=== PATIENT | male | born 1995 | race Caucasian/White ===

== ENCOUNTER 2017-10-03 10:50 | Emergency (ER) | payer BC ==
--- NOTE | 2017-10-03 13:22 | ED PDOC ---
HPI: Psych/Substance Abuse Time Seen by Provider: 10/03/17 11:11 Chief Complaint (Nursing): Psychiatric Evaluation History Per: Patient Additional Complaint(s): Pt. states he was urged by his family to come to ED for psych evaluation. Pt. does not understand why he is in the hospital. He states all "I have to do is agree and be humble." Denies SI, HI, hallucinations. Offers no complaints at this time. Past Medical History Reviewed: Historical Data, Nursing Documentation, Vital Signs Vital Signs: Last Vital Signs Temp 97 F L 10/03/17 11:03 Pulse 98 H 10/03/17 11:03 Resp 18 10/03/17 11:03 BP 140/82 10/03/17 11:03 Pulse Ox 98 10/03/17 11:03 - Medical History Other PMH: bipolar - Family History Family History: States: No Known Family Hx - Allergies Allergies/Adverse Reactions: Allergies Allergy/AdvReac Type Severity Reaction Status Date / Time No Known Allergies Allergy Verified 10/03/17 11:03 Review of Systems ROS Statement: Except As Marked, All Systems Reviewed And Found Negative Physical Exam - Reviewed Nursing Documentation Reviewed: Yes Vital Signs Reviewed: Yes - Physical Exam Appears: Positive for: Well, Non-toxic, No Acute Distress Head Exam: Positive for: ATRAUMATIC, NORMAL INSPECTION, NORMOCEPHALIC Skin: Positive for: Normal Color, Warm. Negative for: Rash Eye Exam: Positive for: EOMI, Normal appearance, PERRL ENT: Positive for: Normal ENT Inspection Neck: Positive for: Normal, Painless ROM Cardiovascular/Chest: Positive for: Regular Rate, Rhythm Respiratory: Positive for: CNT, Normal Breath Sounds Gastrointestinal/Abdominal: Positive for: Normal Exam, Bowel Sounds, Soft Back: Positive for: Normal Inspection Extremity: Positive for: Normal ROM Neurologic/Psych: Positive for: Alert, Oriented, Mood/Affect (cooperative, hyperverbal, tangential thoughts). Negative for: Aphasia, Facial Droop - Laboratory Results Result Diagrams: 10/03/17 13:42 10/03/17 13:42 - ECG ECG: Positive for: Interpreted By Me ECG Rhythm: Positive for: Sinus Rhythm. Negative for: ST/T Changes Rate: 77 O2 Sat by Pulse Oximetry: 98 - Radiology X-Ray: Interpreted by Me (CXR) X-Ray Interpretation: No Acute Disease - Progress ED Course And Treament: Crisis evaluated pt. and pt. requires [facility] screen. Ativan 2mg IM given as pt. is screaming but is not violent. Pt. is medically cleared for psychiatric evaluation. Disposition - Clinical Impression Clinical Impression: Bipolar 1 disorder - Patient ED Disposition Is Patient to be Admitted: Transfer of Care (Signed out to Brenda MORENO pending [facility] disposition.) - Disposition Disposition Time: 20:05 Condition: STABLE Forms: [employer] (Bulgarian)
[2017-10-03 13:49] LABS: BASO % 0.6 % (0.0-2.0); EOS % 0.1 % (0.0-4.0); HEMATOCRIT 49.4 % (35.0-51.0); LYMPH # 2.3 K/uL (1.0-4.3); MEAN CELL VOLUME 90.2 fl (80.0-94.0); MEAN CORPUSCULAR HEMOGLOBIN 29.6 pg (27.0-31.0); MEAN CORPUSCULAR HGB CONC 32.8 g/dL (33.0-37.0); MEAN PLATELET VOLUME 8.3 fl (7.2-11.7); MONO # 0.8 K/uL (0.0-0.8); MONO % 9.3 % (0.0-10.0); NEUT # 5.2 K/uL (1.8-7.0); NRBC % 0.2 % (0.0-0.0); RED CELL DISTRIBUTION WIDTH 13.5 % (11.5-14.5); WHITE BLOOD COUNT 8.3 K/uL (4.8-10.8)
[2017-10-03 13:52] LABS: RBC URINE < 1 /hpf (0-3); URINE BACTERIA RARE (<OCC); URINE BILIRUBIN NEGATIVE (NEGATIVE); URINE BLOOD NEGATIVE (NEGATIVE); URINE COLOR YELLOW (YELLOW); URINE GLUCOSE (UA) NEG (Normal); URINE KETONE NEGATIVE (NEGATIVE); URINE LEUKOCYTE ESTERASE NEG Leu/uL (Negative); URINE PROTEIN NEGATIVE (NEGATIVE); WBC URINE 1 /hpf (0-5)
--- NOTE | 2017-10-03 13:56 | RAD ---
HISTORY: clearance COMPARISON: No prior. FINDINGS: LUNGS: No active pulmonary disease. PLEURA: No significant pleural effusion identified, no pneumothorax apparent. CARDIOVASCULAR: Normal. OSSEOUS STRUCTURES: Note made of mild the levoscoliosis centered in the lower thoracic region. The Kyphotic VISUALIZED UPPER ABDOMEN: Normal. OTHER FINDINGS: None. IMPRESSION: No active disease.
[2017-10-03 13:59] LABS: ALB/GLOB RATIO 1.5 (1.0-2.1); ALCOHOL SERUM < 10 mg/dl (0-10); ALKALINE PHOSPHATASE 85 U/L (38-126); ALT/SGPT 43 U/L (21-72); AST/SGOT 31 U/L (17-59); BLOOD UREA NITROGEN 15 mg/dl (9-20); CALCIUM 9.6 mg/dL (8.4-10.2); CARBON DIOXIDE 28 mmol/L (22-30); CHLORIDE 101 mmol/L (98-107); GFR AFRICAN-AMERICAN > 60; GLUCOSE,RANDOM 113 mg/dL (75-110); POTASSIUM 4.7 MMOL/L (3.6-5.0); SODIUM 138 mmol/l (132-148); TOTAL PROTEIN 8.2 G/DL (6.3-8.2)
--- NOTE | 2017-10-04 04:30 | ED PDOC ---
- Laboratory Results Result Diagrams: 10/03/17 13:42 10/03/17 13:42 - ECG O2 Sat by Pulse Oximetry: 98 - Progress ED Course And Treament: pt signed out to continuity writer pending [facility] bed stable at this time. Medical Decision Making Medical Decision Making: pending [facility] bed assignment. Disposition - Clinical Impression Clinical Impression: Bipolar 1 disorder - POA Present On Arrival: None - Disposition Disposition: Routine/Home Disposition Time: 06:00 Condition: STABLE Forms: [employer] (Portuguese) Patient Signed Over To: Juan Ribeiro Y Progress Note - Review of Symptoms General: No: Chills, Night Sweats, Fatigue, Malaise, Appetite, Other HEENT: No: Head Aches, Visual Changes, Eye Pain, Ear Pain, Dysphasia, Sinus Congestion, Post Nasal Drip, Sore Throat, Other Pulmonary: No: Dyspnea, Cough, Pleuritic Chest Pain, Other Cardiovascular: No: Chest Pain, Palpitations, Orthopnea, Paroxysmal Noc. Dyspnea , Edema, Light Headedness, Other Gastrointestinal: No: Nausea, Vomiting, Abdominal Pain, Diarrhea, Constipation, Melena, Hematochezia, Other Genitourinary: No: Dysuria, Frequency, Incontinence, Hematuria, Retention, Other Musculoskeletal: No: Muscle Pain, Joint Pain, Other Neurological: No: Weakness, Numbness, Incoordination, Change in speech, Confusion, Seizures, Other
--- NOTE | 2017-10-04 05:53 | CARD ---
APPROVED REPORT EKG Measurement Heart [id number] <Conclusion> Normal sinus rhythm Normal ECG
--- NOTE | 2017-10-04 06:12 | ED PDOC ---
- Laboratory Results Result Diagrams: 10/03/17 13:42 10/03/17 13:42 - ECG O2 Sat by Pulse Oximetry: 98 Medical Decision Making Medical Decision Makin:00 Patient signed out to be by Lachelle Gutierrez pending [facility] screening. Reassess --07:00 Patient to be signed out to Dr. Fagan pending [facility] screening. Scribe Attestation: Documented by Hi Morrow acting as a scribe for Juan Ribeiro MD. Provider Attestation: All medical record entries made by the Scribe were at my direction and personally dictated by me. I have reviewed the chart and agree that the record accurately reflects my personal performance of the history, physical exam, medical decision making, and the department course for this patient. I have also personally directed, reviewed, and agree with the discharge instructions and disposition. Disposition Discussed With : Hoang Fagan Doctor Will See Patient In The: ED - Clinical Impression Clinical Impression: Bipolar 1 disorder - POA Present On Arrival: None - Disposition Disposition: Transfer of Care Disposition Time: 07:00 Condition: STABLE Forms: [employer] (Estonian) Patient Signed Over To: Hoang Fagan
--- NOTE | 2017-10-04 07:49 | ED PDOC ---
- Laboratory Results Result Diagrams: 10/03/17 13:42 10/03/17 13:42 - ECG O2 Sat by Pulse Oximetry: 98 Medical Decision Making Medical Decision Making: Patient was signed out to me by Dr. Ribeiro at 7:00AM, pending [facility] screening. Time: 17:00 Patient is endorsed to Dr. Min To III, pending [facility] bed assignment Scribe Attestation: Documented by Kushal Escobedo, acting as a scribe for Hoang Fagan MD Provider Scribe Attestation: All medical record entries made by the Scribe were at my direction and personally dictated by me. I have reviewed the chart and agree that the record accurately reflects my personal performance of the history, physical exam, medical decision making, and the department course for this patient. I have also personally directed, reviewed, and agree with the discharge instructions and disposition. Disposition - Clinical Impression Clinical Impression: Bipolar 1 disorder - POA Present On Arrival: None - Disposition Disposition: Transfer of Care Disposition Time: 17:00 Condition: STABLE Forms: [employer] (Turkish) Patient Signed Over To: Min To III (pending [facility] bed assignment)
--- NOTE | 2017-10-04 11:27 | CP.PCM.CON ---
History of Present Illness - History of Present Illness History of Present Illness: Psychiatry consult note CC: "They are keeping me here for telling the truth." HPI: 22 yo male presented w/ bizarre behavior, disorganized/tangential speech, scientology preoccupation and delusions, screened by [facility] and accepted for involuntary admission. Patient was a limited historian due to acute psychosis and thought disorganization. Additional info from crisis evaluation below: 22 year old, , Single Male, whom was brought to the [facility] ED by his parents, secondary to pt presenting with "bizarre" behavior and tangential speech. While CW met with pt to conduct assessment, pt was exhibiting disorganized thinking and speech. Pt was dressed in a hospital gown. Pt was unable to answer assessment questions logically, whereas pt displayed "tangetiality" and pressure of speech while talking to CW, loose associations of ideas, exhibit "bizarre delusion" as pt stated that the pens were talking to him, and they were stating that he cannot stay in the hospital."During the assessment, CW observed that pt began to yell, requesting to give him back clothes as he stated, " I am naked and why sinners are not paying for their mistakes." Pt was religiously preocuppied stating that " he is not God, but he is here to save us as we are all sinners." Pt was unable to articulate whether he had any current SI, HI, and A/V/T hallucinations. It is this CW's observation throughout the assessment that pt could not contract for safety." Pt was in severe acute distress at the time of the assessment. Pt is to be screened by [facility] staff. workers compensation claims specialist (DM) met with pt's mother, Cristina [phone] to obtain collateral information. Mrs. Campos reported to CW that pt has been acting "bizarre" since 09/30/2017, whereas pt is pacing back and forth, talking to himself while looking at the mirror, exhibiting tangentiality, and also being religiously preoccupied as pt is making "scientology statement" in regards to " God protecting the world and how sin will make the world pay." Pt's mother while meeting with the CW showed CW the cell phone messages pt sent to his sister stating that he wants a " white loyal dog and white horse" for Inocencia , and he is not God to help the world;all I want is attention and love." Pt's mother stated that pt's appetite and sleep worsen as pt is eating less and has not been sleeping for more than 24 hours. Pt's mother stated that she is seeking at this time Inpatient Admission for pt. PPHx: As per pt's mother, pt is taking Vyvanse 30mg currently as his psychiatris Dr. Lanza recently made some changes with pt's medication. Pt's mother stated that in the past; pt was prescribed Seroquel 300mg and Klonopin 1mg as pt was diagnosed with Bipolar Disorder. As per pt's parent, pt has two prior psychiatric admissions back on 2014 when he lived in [place] while attending school. SHx: Lives in apt w/mother. Utox + Amphetamine ALL: NKDA MSE: Alert and oriented, calm, no acute distress, good eye contact, mood/affect - neutral, thought process- non-linear, circumstantial, loose, thought content- +scientology preoccupation + delusions, Denies AH/VH/SI/HI Impression: 22 yo male w/ schizoaffective disorder vs bipolar disorder presents acutely decompensated in need of acute inpatient hospitalization. -Transfer to [facility] for involuntary commitment when bed is available -Haldol 5 mg PO or IM Q8 PRN agitation/ Ativan 2 mg PO or IM Q8 PRN agitation/ Benadryl 50 mg PO or IM Q8hr PRN agitation Past Patient History - Past Social History Smoking Status: Unknown If Ever Smoked - CARDIAC Hx Cardiac Disorders: No Hx Hypertension: No - PULMONARY Hx Tuberculosis: No - NEUROLOGICAL HX Cerebrovascular Accident: No Hx Seizures: No - HEMATOLOGICAL/ONCOLOGICAL Hx Cancer: No Hx Human Immunodeficiency Virus (HIV): No - GENITOURINARY/GYNECOLOGICAL Hx Sexually Transmitted Disorders: No - PSYCHIATRIC Hx Substance Use: No Meds Allergies/Adverse Reactions: Allergies Allergy/AdvReac Type Severity Reaction Status Date / Time No Known Allergies Allergy Verified 10/03/17 11:03 Results - Vital Signs Recent Vital Signs: Last Vital Signs Temp 98 F 10/04/17 06:18 Pulse 62 10/04/17 06:18 Resp 14 10/04/17 06:18 BP 112/60 10/04/17 06:18 Pulse Ox 98 10/04/17 07:49 - Labs Result Diagrams: 10/03/17 13:42 10/03/17 13:42 Labs: Laboratory Results - last 24 hr 10/03/17 10/03/17 10/03/17 13:35 13:35 13:41 WBC RBC Hgb Hct MCV MCH MCHC RDW Plt Count MPV Neut % (Auto) Lymph % (Auto) Stewart % (Auto) Eos % (Auto) Baso % (Auto) Neut # Lymph # Stewart # Eos # Baso # Sodium Potassium Chloride Carbon Dioxide Anion Gap BUN Creatinine Est GFR ( Amer) Est GFR (Non-Af Amer) POC Glucose (mg/dL) 104 Random Glucose Calcium Total Bilirubin AST ALT Alkaline Phosphatase Total Protein Albumin Globulin Albumin/Globulin Ratio Urine Color Yellow Urine Clarity Slighty-cloudy Urine pH 6.0 Ur Specific [place] 1.021 Urine Protein Negative Urine Glucose (UA) Neg Urine Ketones Negative Urine Blood Negative Urine Nitrate Negative Urine Bilirubin Negative Urine Urobilinogen 2.0 Ur Leukocyte Esterase Neg Urine RBC (Auto) < 1 Urine Microscopic WBC 1 Urine Bacteria Rare Urine Opiates Screen Negative Urine Methadone Screen Negative Ur Barbiturates Screen Negative Ur Phencyclidine Scrn Negative Ur Amphetamines Screen Positive H U Benzodiazepines Scrn Negative U Oth Cocaine Metabols Negative U Cannabinoids Screen Negative Alcohol, Quantitative 10/03/17 10/03/17 13:42 13:42 WBC 8.3 RBC 5.48 Hgb 16.2 Hct 49.4 MCV 90.2 MCH 29.6 MCHC 32.8 L RDW 13.5 Plt Count 263 MPV 8.3 Neut % (Auto) 62.0 Lymph % (Auto) 28.0 Stewart % (Auto) 9.3 Eos % (Auto) 0.1 Baso % (Auto) 0.6 Neut # 5.2 Lymph # 2.3 Stewart # 0.8 Eos # 0.0 Baso # 0.0 Sodium 138 Potassium 4.7 Chloride 101 Carbon Dioxide 28 Anion Gap 14 BUN 15 Creatinine 0.9 Est GFR ( Amer) > 60 Est GFR (Non-Af Amer) > 60 POC Glucose (mg/dL) Random Glucose 113 H Calcium 9.6 Total Bilirubin 1.0 AST 31 ALT 43 Alkaline Phosphatase 85 Total Protein 8.2 Albumin 4.9 Globulin 3.3 Albumin/Globulin Ratio 1.5 Urine Color Urine Clarity Urine pH Ur Specific [place] Urine Protein Urine Glucose (UA) Urine Ketones Urine Blood Urine Nitrate Urine Bilirubin Urine Urobilinogen Ur Leukocyte Esterase Urine RBC (Auto) Urine Microscopic WBC Urine Bacteria Urine Opiates Screen Urine Methadone Screen Ur Barbiturates Screen Ur Phencyclidine Scrn Ur Amphetamines Screen U Benzodiazepines Scrn U Oth Cocaine Metabols U Cannabinoids Screen Alcohol, Quantitative < 10
--- NOTE | 2017-10-04 17:15 | ED PDOC ---
- Laboratory Results Result Diagrams: 10/03/17 13:42 10/03/17 13:42 - ECG O2 Sat by Pulse Oximetry: 98 Medical Decision Making Medical Decision Making: Received on endorsement 5pm pending [facility] bed availability Was prior medically cleared Psychiatry saw patient today 940p patient pacing, agitated with paranoid nonsensical speech. Haldol 5mg IM ordered for relief of agitation and improved lucidity. Disposition - Clinical Impression Clinical Impression: Bipolar 1 disorder - Disposition Condition: FAIR Forms: [employer] (Japanese)
--- NOTE | 2017-10-04 21:40 | ED PDOC ---
- Laboratory Results Result Diagrams: 10/03/17 13:42 10/03/17 13:42 - ECG O2 Sat by Pulse Oximetry: 98 - Progress ED Course And Treament: pt is pending bed assignment with [facility]. Vital Signs - 24 hr 10/04/17 10/04/17 10/04/17 04:30 06:18 07:16 Temperature 98 F Pulse Rate 62 Respiratory 14 Rate Blood Pressure 112/60 O2 Sat by Pulse 98 98 98 Oximetry 10/04/17 10/04/17 10/04/17 09:00 16:59 17:00 Temperature 98.0 F 98.2 F Pulse Rate 87 79 Respiratory 18 18 Rate Blood Pressure 120/67 117/55 L O2 Sat by Pulse 97 98 99 Oximetry 10/04/17 17:15 Temperature Pulse Rate Respiratory Rate Blood Pressure O2 Sat by Pulse 98 Oximetry Medical Decision Making Medical Decision Making: pt pending [facility] Disposition - Clinical Impression Clinical Impression: Bipolar 1 disorder - POA Present On Arrival: None - Disposition Disposition: Transfer of Care Disposition Time: 12:15 Condition: STABLE Forms: [facility] (Omani) Progress Note - Review of Symptoms Events since last encounter: pt is aggressive toward staff verbally and not willing to stay in room. attempts made to verbally re-direct but met with resistance will need Ativan IM 2mg to alleviate psychosis.
[2017-10-05 00:23] VITALS: O2SAT 98
--- NOTE | 2017-10-05 00:29 | ED PDOC ---
- Laboratory Results Result Diagrams: 10/03/17 13:42 10/03/17 13:42 - ECG O2 Sat by Pulse Oximetry: 98 Medical Decision Making Medical Decision Making: Time: 00:00 --Patient signed over to me by Dr. Min To pending [facility] Scribe Attestation: Documented by Andre Simon acting as a scribe for Corey Jc MD. Scribe Attestation: All medical record entries made by the Scribe were at my direction and personally dictated by me. I have reviewed the chart and agree that the record accurately reflects my personal performance of the history, physical exam, medical decision making, and the department course for this patient. I have also personally directed, reviewed, and agree with the discharge instructions and disposition. Disposition - Clinical Impression Clinical Impression: Bipolar 1 disorder - Disposition Condition: FAIR Forms: [employer] (Italian)
--- NOTE | 2017-10-05 05:54 | ED PDOC ---
- Laboratory Results Result Diagrams: 10/03/17 13:42 10/03/17 13:42 - ECG O2 Sat by Pulse Oximetry: 98 Medical Decision Making Medical Decision Making: Time: 05:50 --Patient signed over to me by BYRON Gutierrez pending bed availability at [facility] Scribe Attestation: Documented by Andre Simon acting as a scribe for Corey Jc MD. Scribe Attestation: All medical record entries made by the Scribe were at my direction and personally dictated by me. I have reviewed the chart and agree that the record accurately reflects my personal performance of the history, physical exam, medical decision making, and the department course for this patient. I have also personally directed, reviewed, and agree with the discharge instructions and disposition. Disposition - Clinical Impression Clinical Impression: Bipolar 1 disorder - POA Present On Arrival: None - Disposition Disposition: Transfer of Care Disposition Time: 07:00 Condition: FAIR Forms: [facility] [employer] (Mauritanian) Patient Signed Over To: Juan Ribeiro Handoff Comments: pending bed availability at [facility]
--- NOTE | 2017-10-05 07:03 | ED PDOC ---
- Laboratory Results Result Diagrams: 10/03/17 13:42 10/03/17 13:42 - ECG O2 Sat by Pulse Oximetry: 98 Medical Decision Making Medical Decision Makin -Patient transferred to [place] by Dr. Jc, pending bed availability at [facility] 08:50 -Bed available at [facility] under Dr. Chakraborty Disposition - Clinical Impression Clinical Impression: Bipolar 1 disorder - POA Present On Arrival: None - Disposition Disposition: Other Institution Disposition Time: 08:50 Condition: STABLE Forms: [employer] (Gabonese)
[2017-10-05 08:08] VITALS: BP 114/76; PULSE 74; RESP 20; TEMP 97.7
== END 2017-10-05 09:58 | disposition short-term general hospital (02) ==
LOC: H.ER 10:50
DX: F31.9 Bipolar disorder, unspecified (principal); E11.9 Type 2 diabetes mellitus without complications; Z00.8 Encounter for other general examination
CPT/HCPCS: 71010; 80053; 81003; 82948; 85025; 93005; 96372; 99285; G0480; J1630; J2060

== ENCOUNTER 2018-12-02 11:01 | Emergency (ER) | payer BC, MEDICAID ==
[2018-12-02] MEDS ORDERED: Sodium Chloride 0.9% 1,000 ML IV STA (12:03)
[2018-12-02 12:20] VITALS: TEMP 98.4
[2018-12-02 12:41] LABS: BASO % 0.4 % (0.0-2.0); HEMOGLOBIN 14.6 g/dL (12.0-18.0); LYMPH # 0.8 K/uL (1.0-4.3); LYMPH % 9.2 % (20.0-40.0); MEAN CELL VOLUME 91.9 fl (80.0-94.0); MEAN CORPUSCULAR HEMOGLOBIN 30.1 pg (27.0-31.0); MEAN CORPUSCULAR HGB CONC 32.8 g/dL (33.0-37.0); MEAN PLATELET VOLUME 7.6 fl (7.2-11.7); MONO # 0.2 K/uL (0.0-0.8); MONO % 2.7 % (0.0-10.0); NEUT # 7.8 K/uL (1.8-7.0); NEUT % 87.7 % (50.0-75.0); PLATELET COUNT 269 K/uL (130-400); RBC 4.85 Mil/uL (4.40-5.90); RED CELL DISTRIBUTION WIDTH 13.1 % (11.5-14.5); WHITE BLOOD COUNT 8.8 K/uL (4.8-10.8)
[2018-12-02] MEDS ORDERED: Morphine 4 MG/ML VIAL ONE (12:41)
[2018-12-02 12:49] LABS: INR 1.1; PROTHROMBIN TIME 12.8 Seconds (9.8-13.1)
[2018-12-02 12:51] LABS: ALB/GLOB RATIO 1.4 (1.0-2.1); ALBUMIN 4.5 g/dL (3.5-5.0); ALT/SGPT 58 U/L (21-72); AST/SGOT 65 U/L (17-59); BLOOD UREA NITROGEN 21 mg/dl (9-20); CALCIUM 9.5 mg/dL (8.4-10.2); GFR NON-AFRICAN AMERICAN > 60; LIPASE 70 U/L (23-300)
[2018-12-02 12:51] LABS: URINE BACTERIA RARE (<OCC); URINE BILIRUBIN NEGATIVE (NEGATIVE); URINE BLOOD NEGATIVE (NEGATIVE); URINE CLARITY CLEAR (Clear); URINE COLOR YELLOW (YELLOW); URINE GLUCOSE (UA) NEG (NEGATIVE); URINE LEUKOCYTE ESTERASE NEG Leu/uL (Negative); URINE PROTEIN NEGATIVE (NEGATIVE)
[2018-12-02 12:52] LABS: PARTIAL THROMBOPLASTIN TIME 29.6 Seconds (25.6-37.1)
[2018-12-02] MEDS ORDERED: Sodium Chloride 0.9% 50 ML IV ONE (13:28)
[2018-12-02] MEDS ORDERED: Iohexol 300 100 ML IJ ONE (13:28)
[2018-12-02] MEDS ORDERED: Iodixanol 320 MG/ML 100 ML BOTTLE IV ONE (13:29)
--- NOTE | 2018-12-02 13:46 | ED PDOC ---
HPI:Nausea, Vomiting, Diarrhea Time Seen by Provider: 12/02/18 11:35 Chief Complaint (Nursing): GI Problem Chief Complaint (Provider): Vomiting History Per: Patient History/Exam Limitations: no limitations Additional Complaint(s): Pt reports multiple episodes of nonbloody vomiting since this AM, associated with abdominal pain. Denies fever, constipation, diarrhea, symptoms. Past Medical History Reviewed: Nursing Documentation, Vital Signs Vital Signs: Last Vital Signs Temp 98.4 F 12/02/18 12:20 Pulse 82 12/02/18 11:03 Resp 16 12/02/18 11:03 BP 135/72 12/02/18 11:03 Pulse Ox 100 12/02/18 11:03 - Medical History PMH: Bipolar Disorder Denies: Diabetes, Hepatitis, HIV, HTN, Seizures, Sexually Transmitted Disease - Family History Family History: States: Unknown Family Hx - Living Arrangements Living Arrangements: With Family - Social History Current smoker - smoking cessation education provided: No Alcohol: None - Immunization History Hx Tetanus Toxoid Vaccination: No Hx Influenza Vaccination: No Hx Pneumococcal Vaccination: No - Home Medications Home Medications: Ambulatory Orders Medication Instructions Recorded Dicyclomine [Bentyl] 20 mg PO QID PRN #10 tab 12/02/18 Ondansetron ODT [Zofran ODT] 4 mg PO Q8H PRN #20 odt 12/02/18 - Allergies Allergies/Adverse Reactions: Allergies Allergy/AdvReac Type Severity Reaction Status Date / Time peanut Allergy ANAPHYLAXIS Verified 12/02/18 11:21 Penicillins Allergy RASH Verified 12/02/18 11:21 Review of Systems Constitutional: Negative for: Fever, Chills Gastrointestinal: Positive for: Nausea, Vomiting, Abdominal Pain, Diarrhea Genitourinary Male: Negative for: Dysuria, Hematuria Musculoskeletal: Negative for: Back Pain Skin: Negative for: Rash, Lesions Neurological: Negative for: Headache, Dizziness Physical Exam - Reviewed Nursing Documentation Reviewed: Yes Vital Signs Reviewed: Yes - Physical Exam Appears: Positive for: Uncomfortable Skin: Positive for: Normal Color, Warm, Dry Eye Exam: Positive for: Normal appearance, EOMI, PERRL Cardiovascular/Chest: Positive for: Regular Rate, Rhythm Respiratory: Positive for: Normal Breath Sounds. Negative for: Rales, Rhonchi, Wheezing Gastrointestinal/Abdominal: Positive for: Bowel Sounds, Soft, Tenderness (Generalized). Negative for: Mass, Guarding, Rebound Back: Positive for: Normal Inspection. Negative for: L CVA Tenderness, R CVA Tenderness Extremity: Positive for: Normal ROM Neurologic/Psych: Positive for: Alert, Oriented - Laboratory Results Result Diagrams: 12/02/18 12:37 12/02/18 12:37 Lab Results: PT 12.8 Seconds (9.8-13.1) 12/02/18 12:37 INR 1.1 12/02/18 12:37 APTT 29.6 Seconds (25.6-37.1) 12/02/18 12:37 Total Bilirubin 0.6 mg/dl (0.2-1.3) 12/02/18 12:37 AST 65 U/L (17-59) H D 12/02/18 12:37 ALT 58 U/L (21-72) 12/02/18 12:37 Alkaline Phosphatase 90 U/L (38-126) 12/02/18 12:37 Total Protein 7.8 G/DL (6.3-8.2) 12/02/18 12:37 Albumin 4.5 g/dL (3.5-5.0) 12/02/18 12:37 Globulin 3.2 gm/dL (2.2-3.9) 12/02/18 12:37 Albumin/Globulin Ratio 1.4 (1.0-2.1) 12/02/18 12:37 Lipase 70 U/L (23-300) 12/02/18 12:37 Urine Color Yellow (YELLOW) 12/02/18 12:38 Urine Clarity Clear (Clear) 12/02/18 12:38 Urine pH 7.0 (5.0-8.0) 12/02/18 12:38 Ur Specific Junction 1.026 (1.003-1.030) 12/02/18 12:38 Urine Protein Negative mg/dL (NEGATIVE) 12/02/18 12:38 Urine Glucose (UA) Neg mg/dL (NEGATIVE) 12/02/18 12:38 Urine Ketones 20 mg/dL (NEGATIVE) 12/02/18 12:38 Urine Blood Negative (NEGATIVE) 12/02/18 12:38 Urine Nitrate Negative (NEGATIVE) 12/02/18 12:38 Urine Bilirubin Negative (NEGATIVE) 12/02/18 12:38 Urine Urobilinogen 2.0 mg/dL (0.2-1.0) 12/02/18 12:38 Ur Leukocyte Esterase Neg [place]/uL (Negative) 12/02/18 12:38 Urine RBC (Auto) 2 /hpf (0-3) 12/02/18 12:38 Urine Microscopic WBC 1 /hpf (0-5) 12/02/18 12:38 Urine Bacteria Rare (<OCC) 12/02/18 12:38 - ECG O2 Sat by Pulse Oximetry: 100 Medical Decision Making Medical Decision Makin yo male with vomiting and abdominal pain. - labs - CT abd/pelvis - IVF - Bentyl - Zofran Accession No. : [id number] Patient Name / ID : CHUYITA RAMSEY / [id number] Exam Date : 12/02/2018 13:26:57 ( Approved ) Study Comment : Sex / Age : M / 23Y Creator : Avinash Carlin MD Dictator : Avinash Carlin MD Beam Machine Operator : Glass Embosser : Avinash Carlin MD Approver2 : Report Date : 12/02/2018 13:55:58 My Comment : Date of service: 12/02/2018 PROCEDURE: CT Abdomen and Pelvis with contrast HISTORY: Gen abd pain, vomiting COMPARISON: None. TECHNIQUE: Contrast dose: 95 mL Omnipaque 300 Radiation dose: Total exam DLP = 430.22 mGy-cm. This CT exam was performed using one or more of the following dose reduction techniques: Automated exposure control, adjustment of the mA and/or kV according to patient size, and/or use of iterative reconstruction technique. FINDINGS: LOWER THORAX: Unremarkable. LIVER: Unremarkable. No gross lesion or ductal dilatation. GALLBLADDER AND BILE DUCTS: Unremarkable. PANCREAS: Unremarkable. No gross lesion or ductal dilatation. SPLEEN: Unremarkable. ADRENALS: Unremarkable. No mass. KIDNEYS AND URETERS: 2.6 cm right interpolar cyst. No hydronephrosis. No solid mass. VASCULATURE: Unremarkable. No aortic aneurysm. No aortic atherosclerotic calcification or mural plaque present. BOWEL: Unremarkable. No obstruction. No gross mural thickening. APPENDIX: Normal appendix. PERITONEUM: Unremarkable. No free fluid. No free air. LYMPH NODES: Unremarkable. No enlarged lymph nodes. BLADDER: Unremarkable. REPRODUCTIVE: Unremarkable. BONES: No acute fracture. OTHER FINDINGS: None. IMPRESSION: No acute abdominal pelvic pathology. Disposition - Clinical Impression Clinical Impression: Vomiting - Disposition Referrals: Jacinda Heard MD [Family Provider] - Disposition: Routine/Home Disposition Time: 14:51 Condition: STABLE Prescriptions: Dicyclomine [Bentyl] 20 mg PO QID PRN #10 tab PRN Reason: Pain, Moderate (4-7) Ondansetron ODT [Zofran ODT] 4 mg PO Q8H PRN #20 odt PRN Reason: Nausea/Vomiting Instructions: Nausea and Vomiting, Adult Forms: [facility] (Khmer)
--- NOTE | 2018-12-02 13:59 | CT ---
Date of service: 12/02/2018 PROCEDURE: CT Abdomen and Pelvis with contrast HISTORY: Gen abd pain, vomiting COMPARISON: None. TECHNIQUE: Contrast dose: 95 mL Omnipaque 300 Radiation dose: Total exam DLP = 430.22 mGy-cm. This CT exam was performed using one or more of the following dose reduction techniques: Automated exposure control, adjustment of the mA and/or kV according to patient size, and/or use of iterative reconstruction technique. FINDINGS: LOWER THORAX: Unremarkable. LIVER: Unremarkable. No gross lesion or ductal dilatation. GALLBLADDER AND BILE DUCTS: Unremarkable. PANCREAS: Unremarkable. No gross lesion or ductal dilatation. SPLEEN: Unremarkable. ADRENALS: Unremarkable. No mass. KIDNEYS AND URETERS: 2.6 cm right interpolar cyst. No hydronephrosis. No solid mass. VASCULATURE: Unremarkable. No aortic aneurysm. No aortic atherosclerotic calcification or mural plaque present. BOWEL: Unremarkable. No obstruction. No gross mural thickening. APPENDIX: Normal appendix. PERITONEUM: Unremarkable. No free fluid. No free air. LYMPH NODES: Unremarkable. No enlarged lymph nodes. BLADDER: Unremarkable. REPRODUCTIVE: Unremarkable. BONES: No acute fracture. OTHER FINDINGS: None. IMPRESSION: No acute abdominal pelvic pathology.
[2018-12-02 14:13] LABS: LYMPHOCYTE 11 % (20-50); MONOCYTE 2 % (0-10); NEUTROPHIL 87 % (42-75); PLATELET ESTIMATE NORMAL (NORMAL); TOTAL CELLS COUNTED 100
[2018-12-02 14:14] LABS: ANISOCYTOSIS SLIGHT; LARGE PLATELETS PRESENT; TEARDROP CELLS MODERATE
[2018-12-02 15:21] VITALS: BP 121/63; PULSE 77; RESP 18
[2018-12-04 15:54] VITALS: O2SAT 100
== END 2018-12-02 15:09 | disposition home or self-care (01) ==
LOC: H.ER 11:01
DX: R11.10 Vomiting, unspecified (principal)
CPT/HCPCS: 74177; 80053; 81003; 83690; 85025; 85610; 85730; 96374; 99284; J2405; J7030; Q9967